=== PATIENT | female | born 1970 ===

== ENCOUNTER 2020-02-04 12:01 | Outpatient (REF) | payer OTHER, SELFPAY | END 2020-02-04 12:02 | disposition home or self-care (01) | LOC: HO.LNP 12:01 | PROVIDERS: Visit Provider Nurse Practitioner Family | DX: R05 Cough (principal); M79.10 Myalgia, unspecified site; R51.9 Headache, unspecified | CPT/HCPCS: 87635 ==

== ENCOUNTER 2020-07-30 13:16 | Outpatient (REF) | payer OTHER, SELFPAY | END 2020-07-30 13:17 | disposition home or self-care (01) | LOC: HO.LAB 13:16 | PROVIDERS: Visit Provider Internal Medicine | DX: Z20.822 Contact with and (suspected) exposure to COVID-19 (principal) | CPT/HCPCS: C9803; U0003; U0005 ==

== ENCOUNTER 2020-08-11 15:28 | Outpatient (REF) | payer OTHER, SELFPAY | END 2020-08-11 15:29 | disposition home or self-care (01) | LOC: HO.LAB 15:28 | PROVIDERS: Visit Provider Internal Medicine | DX: Z20.822 Contact with and (suspected) exposure to COVID-19 (principal) | CPT/HCPCS: C9803; U0003; U0005 ==

== ENCOUNTER 2022-02-10 14:10 | Outpatient (REF) | payer OTHER, SELFPAY ==
--- NOTE | ~2022-02-10 | XR_ITS ---
EXAMINATION: XR CHEST CLINICAL INFORMATION: Asthma COMPARISON: Previous chest x-ray from 2009 TECHNIQUE: 2 views of the chest were obtained. FINDINGS: No significant abnormality is noted involving the heart, lungs, mediastinum, bony thorax or soft tissues. XR/XR chest 2V IMPRESSION: Unremarkable examination.
[2022-02-10 14:31] LABS: MANUAL DIFF FLAG NO
[2022-02-10 15:08] LABS: Basophils Percent Auto 0.3 % (0-2); Eosinophils Absolute Auto 0.4 X10*3/uL (0.0-0.4); Eosinophils Percent Auto 6.4 % (0-4); Hematocrit 39.8 % (37.0-47.0); Hemoglobin 12.9 g/dl (12.0-16.0); Imm Gran Abs Auto 0.01 X10*3/uL (0.00-0.03); Imm Gran Pct Auto 0.2 % (0.0-0.4); Lymphocytes Absolute Auto 2.3 X10*3/uL (1.2-4.9); Lymphocytes Percent Auto 39.1 % (20-40); Mean Corpuscular HGB Conc 32.4 g/dl (31.0-35.0); Mean Corpuscular Hemoglobin 28.2 pg (27.0-33.0); Mean Corpuscular Volume 86.9 fL (80.0-98.0); Mean Platelet Volume 12.1 fL (9.4-12.3); Monocytes Absolute Auto 0.7 X10*3/uL (0.1-1.2); Monocytes Percent Auto 11.3 % (2-11); Neutrophils Absolute Auto 2.5 x10*3/uL (2.0-8.3); Neutrophils Percent Auto 42.7 % (45-73); Platelet Count 282 X10*3/uL (160-400); Red Blood Count 4.58 X10*6/uL (4.20-5.50); White Blood Count 5.8 X10*3/uL (4.8-10.8)
[2022-02-10 18:39] LABS: Erythrocyte Sedimentation Rate 14 MM/HR (0-20)
== END 2022-02-10 14:11 | disposition home or self-care (01) ==
LOC: HO.LAB 14:10
PROVIDERS: PCP Internal Medicine; Visit Provider Hospitalist
DX: Z01.82 Encounter for allergy testing (principal); J45.901 Unspecified asthma with (acute) exacerbation
CPT/HCPCS: 36415; 71046; 82785; 85025; 85652; 86003

== ENCOUNTER → 2022-05-18 13:09 | Outpatient (BNVA) | payer OTHER, SELFPAY | PROVIDERS: PCP Internal Medicine; Visit Provider Hospitalist | DX: Z13.89 Encounter for screening for other disorder (principal) ==

== ENCOUNTER 2022-12-05 14:40 | Outpatient (AMB) | payer OTHER, SELFPAY ==
--- NOTE | 2022-12-05 14:44 | A.OFFVIS_ITS ---
Intake Vital Signs 12/05/22 14:46 Height 4 ft 11 in Weight 100 lb BMI 20.2 BP 100/60 Blood Pressure Location Lt brachial Position Sitting Pulse 79 Pulse Source Pulse Oximeter Pulse Oximetry (%) 97 Oxygen Delivery Method Room Air Intake Visit Reasons: asthma Trencher Driver Required: No Allergies No Known Allergies Allergy (Verified 12/05/22 14:50) HPI HPI Comments History of Present Illness Details The patient is a 52-year-old woman with a known history will lifelong asthma. She has been on Advair for many years and had been relatively stable. He has also been on allergy medications in addition to Singulair more recently the last few months her asthma has been significantly worse. she started developing worsening cough chest tightness productive cough. the patient has required antibiotics and prednisone to try to appease her symptoms. the patient does respond to the Prednisone. Patient also has a nebulizer. Today she has been having also worsening chest tightness and wheezing. Unfortunate she is having significant wheezing on examination. the patient has been using her rescue inhaler several times a day consistent with her uncontrolled asthma. She will require additional prednisone at this time. Today will request blood work prior to her starting her medications to see if she qualifies for biologic therapy. The patient has already been maximized on her respiratory therapy as an outpatient with poor control Of her asthma symptoms. Therefore biologic therapy may be indicated at this time. 05/18/2022 the patient is here for a pulmonary follow-up visit. She continues to have significant chest tightness and shortness of breath. She also has wheezing on a regular basis. She does use her rescue inhaler on a daily basis. In addition to that she does complaint of nasal congestion and postnasal drip. This also aggravates her cough. We did review her allergy testing. She does have evidence of eosinophilia in addition to that she has significant allergies to dust mites. Her IgE was slightly elevated as well. The patient does have allergic asthma. During the last visit she did require prednisone. At this point she does not require prednisone although she is not controlled. Based on a significant allergies the patient be a good candidate for biologic therapy. This will minimize her symptoms we decrease her prednisone needs and decrease ex acerbations. Based on her elevated eosinophils she will be a good candidate for Fasenra. She also continues to have nasal congestion. She has been using nasal cortical steroid. Go ahead and send a prescription as well. She can also continue with nasal rinsing. 12/05/2022 the patient is here for pulmonary follow-up visit. The patient continues to struggle with her breathing. she does have significant chest tightness and wheezing. Moderate severity. Associated with frequent coughing episodes. Sometimes affecting her sleep. Her last chest x-ray from 2021 demonstrating no acute disease. The patient has been on Advair. Has required her rescue inhaler on a daily basis. Recently she had to go back on prednisone because of worsening asthma symptoms. She also has been using singular. We did request the patient start on biologics but she was not able to do so. Will go ahead and repeat her blood work and I do believe she will be a great candidate for biologic therapy in order to optimize her medications. [facility] Medical History (Updated 12/05/22 @ 22:15 by Davis Josue MD) Asthma Chronic allergic rhinitis Social History (Updated 02/10/22 @ 13:46 by CHITRA Santoro) Patient Tobacco Use Status: Never used Tobacco Review of Systems Const Denies fever(s) Eyes Denies change in vision ENT Reports nasal congestion, Reports nasal discharge, Reports post nasal drip, Denies throat swelling and Denies tongue swelling Card Denies chest pain and Reports dyspnea on exertion Resp Reports chest congestion, Reports cough, Denies hemoptysis, Reports dyspnea on exertion and Reports wheezing GI Reports no additional complaints Musc Reports no additional complaints Skin/Breast Denies wounds Neuro Reports no additional complaints Rayo/Lymph Denies easy bleeding and Denies easy bruising Aller/Immun Reports seasonal rhinorrhea, Denies throat swelling, Denies tongue swelling and Reports wheezing Physical Exam Vital Signs: Last Vital Signs Pulse 79 12/05/22 14:46 BP 100/60 12/05/22 14:46 Pulse Ox 97 12/05/22 14:46 Oxygen Delivery Method Room Air 12/05/22 14:46 BMI result Body Mass Index 20.2 Const General: comfortable HEENT Head: Yes normal to inspection Eyes General: appearance normal, both eyes and all related structures Neck Neck: Yes supple Chest Chest palpation & inspection: normal inspection of the chest Resp Effort & Inspection: prolonged expiratory phase Auscultation: wheezes and diminished lung sounds Cardio Rate: regular rate Rhythm: regular rhythm Heart sounds: S1 normal heart sound present and S2 normal heart sound present GI Auscultation: normal bowel sounds Skin General skin exam: no rashes or lesions noted Extrem General: Yes no clubbing, cyanosis or edema Assessment & Plan Assessment & Plan (1) Asthma: Code(s): J45.909 - Unspecified asthma, uncomplicated Qualifiers: Asthma severity: severe Asthma persistence: persistent Asthma complication type: with acute exacerbation Qualified Code(s): J45.51 - Severe persistent asthma with (acute) exacerbation (2) Cough: Code(s): R05 - Cough (3) Chronic allergic rhinitis: Code(s): J30.9 - Allergic rhinitis, unspecified Plan continue Advair continue singular fluticasone nasal spary nasal rinsing bloodwork would benefit from biologic therapy: IL5 inhibitor, Nucala F/U 2-3 months Orders: Orders Complete Blood Count Auto Diff Today J30.9 - Allergic rhinitis, unspecified, J45.909 - Unspecified asthma, uncomplicated Immunoglobulin E Today J30.9 - Allergic rhinitis, unspecified, J45.909 - Unspecified asthma, uncomplicated Immunoglobulins,IgG IgA IgM Today J30.9 - Allergic rhinitis, unspecified, J45.909 - Unspecified asthma, uncomplicated Erythrocyte Sedimentation Rate Today J30.9 - Allergic rhinitis, unspecified, J45.909 - Unspecified asthma, uncomplicated Medications: New prednisone PO daily; Take 2 tabs daily x 5 days, then 1 tablet daily x 5 days 10 days 15 tabs 0RF albuterol sulfate 2.5 mg (3 mL) inhalation Q6H 30 days PRN 180 mL 11RF shortness of breath or wheezing fluticasone propion-salmeterol 230-21 mcg/actuation (Advair HFA) 2 puffs inhalation BID 30 days 12 grams 11RF Coding Level of Care Code Est Pt Level 4 (98818) Diagnoses Asthma J45.51 Asthma severity: severe Asthma persistence: persistent Asthma complication type: with acute exacerbation Cough R05 Chronic allergic rhinitis J30.9 Time Spent (min) 18
[2022-12-05 14:46] VITALS: BP 100/60; PULSE 79; O2SAT 97; BMI 20.2
== END 2022-12-05 15:14 | disposition home or self-care (01) ==
PROVIDERS: PCP Internal Medicine; Visit Provider Hospitalist
DX: J45.51 Severe persistent asthma with (acute) exacerbation (principal); R05.9 Cough, unspecified; J30.9 Allergic rhinitis, unspecified
CPT/HCPCS: 99214

== ENCOUNTER 2022-12-05 14:40 | Outpatient (REF) | payer OTHER, SELFPAY ==
[2022-12-05 16:39] LABS: Basophils Percent Auto 0.4 % (0-2); Eosinophils Absolute Auto 0.4 X10*3/uL (0.0-0.4); Eosinophils Percent Auto 7.2 % (0-4); Hematocrit 36.8 % (37.0-47.0); Hemoglobin 12.2 g/dl (12.0-16.0); Imm Gran Abs Auto 0.02 X10*3/uL (0.00-0.03); Imm Gran Pct Auto 0.4 % (0.0-0.4); Lymphocytes Absolute Auto 2.5 X10*3/uL (1.2-4.9); Lymphocytes Percent Auto 46.4 % (20-40); MANUAL DIFF FLAG SCAN; Mean Corpuscular HGB Conc 33.2 g/dl (31.0-35.0); Mean Corpuscular Volume 87.4 fL (80.0-98.0); Mean Platelet Volume 13.3 fL (9.4-12.3); Monocytes Absolute Auto 0.5 X10*3/uL (0.1-1.2); Neutrophils Absolute Auto 1.9 x10*3/uL (2.0-8.3); Neutrophils Percent Auto 35.6 % (45-73); PLT CLUMP 1; Platelet Count 257 X10*3/uL (160-400); Red Blood Count 4.21 X10*6/uL (4.20-5.50); Red Cell Distribution Width 13.7 % (11.0-16.0); SCAN SMEAR FLAG 1; White Blood Count 5.3 X10*3/uL (4.8-10.8)
[2022-12-05 16:41] LABS: SLIDE REVIEW VERIFIED
[2022-12-05 16:49] LABS: Erythrocyte Sedimentation Rate 13 MM/HR (0-20)
[2022-12-06 15:54] LABS: IgA 90 mg/dL (47-310); IgG 1195 mg/dL (600-1640); IgM 31 mg/dL (50-300)
[2022-12-07 08:24] LABS: Immunoglobulin E 61 kU/L (<OR=114)
== END 2022-12-05 14:41 | disposition home or self-care (01) ==
LOC: HO.LAB 14:40
PROVIDERS: PCP Internal Medicine; Visit Provider Hospitalist
DX: J45.51 Severe persistent asthma with (acute) exacerbation (principal); J30.9 Allergic rhinitis, unspecified
CPT/HCPCS: 36415; 82784; 82785; 85025; 85652

== ENCOUNTER 2023-01-03 12:45 | Outpatient (REF) | payer OTHER, SELFPAY | END 2023-01-03 12:46 | disposition home or self-care (01) | LOC: HO.MDS 12:45 | PROVIDERS: Visit Provider Hospitalist | DX: J45.50 Severe persistent asthma, uncomplicated (principal) | CPT/HCPCS: 96372; J2182 ==

== ENCOUNTER 2023-02-07 12:57 | Outpatient (REF) | payer OTHER, SELFPAY | END 2023-02-07 12:58 | disposition home or self-care (01) | LOC: HO.MDS 12:57 | PROVIDERS: Visit Provider Hospitalist | DX: J45.50 Severe persistent asthma, uncomplicated (principal) | CPT/HCPCS: 96372; J2182 ==

== ENCOUNTER 2023-03-09 14:40 | Outpatient (REF) | payer OTHER, SELFPAY | END 2023-03-09 14:41 | disposition home or self-care (01) | LOC: HO.MDS 14:40 | PROVIDERS: Visit Provider Hospitalist | DX: J45.50 Severe persistent asthma, uncomplicated (principal) | CPT/HCPCS: 96372; J2182 ==

== ENCOUNTER 2023-07-02 13:08 | Outpatient (REF) | payer OTHER, SELFPAY ==
[2023-07-02 13:24] VITALS: BP 93/61; PULSE 76; RESP 16; TEMP 36.4; O2SAT 98; BMI 20.2
[2023-07-02] MEDS: Mepolizumab 100 MG/ML AUTO.INJCT SUBCUT (13:31)
== END 2023-07-02 13:09 | disposition home or self-care (01) ==
LOC: HO.MDS 13:08
PROVIDERS: Visit Provider Hospitalist
DX: J45.50 Severe persistent asthma, uncomplicated (principal)
CPT/HCPCS: 96372; J2182

== ENCOUNTER 2023-10-24 10:01 | Outpatient (AMB) | payer OTHER, SELFPAY ==
--- NOTE | 2023-10-24 10:09 | A.OFFVIS_ITS ---
Vital Signs 10/24/23 10:11 Height 4 ft 11 in Weight 101 lb 6.602 oz BMI 20.5 BP 100/70 Blood Pressure Location Lt brachial Position Sitting Pulse 70 Pulse Source Pulse Oximeter Pulse Oximetry (%) 98 Oxygen Delivery Method Room Air Intake Visit Reasons: Asthma Transit Planning Manager Required: No Allergies No Known Allergies Allergy (Verified 10/24/23 10:15) HPI Comments Details: The patient is a 53-year-old woman with a known history will lifelong asthma. She has been on Advair for many years and had been relatively stable. He has also been on allergy medications in addition to Singulair more recently the last few months her asthma has been significantly worse. she started developing worsening cough chest tightness productive cough. the patient has required antibiotics and prednisone to try to appease her symptoms. the patient does respond to the Prednisone. Patient also has a nebulizer. Today she has been having also worsening chest tightness and wheezing. Unfortunate she is having significant wheezing on examination. the patient has been using her rescue inhaler several times a day consistent with her uncontrolled asthma. She will require additional prednisone at this time. Today will request blood work prior to her starting her medications to see if she qualifies for biologic therapy. The patient has already been maximized on her respiratory therapy as an outpatient with poor control Of her asthma symptoms. Therefore biologic therapy may be indicated at this time. 05/18/2022 the patient is here for a pulmonary follow-up visit. She continues to have significant chest tightness and shortness of breath. She also has wheezing on a regular basis. She does use her rescue inhaler on a daily basis. In addition to that she does complaint of nasal congestion and postnasal drip. This also aggravates her cough. We did review her allergy testing. She does have evidence of eosinophilia in addition to that she has significant allergies to dust mites. Her IgE was slightly elevated as well. The patient does have allergic asthma. During the last visit she did require prednisone. At this point she does not require prednisone although she is not controlled. Based on a significant allergies the patient be a good candidate for biologic therapy. This will minimize her symptoms we decrease her prednisone needs and decrease exacerbations. Based on her elevated eosinophils she will be a good candidate for Fasenra. She also continues to have nasal congestion. She has been using nasal cortical steroid. Go ahead and send a prescription as well. She can also continue with nasal rinsing. 12/05/2022 the patient is here for pulmonary follow-up visit. The patient continues to struggle with her breathing. she does have significant chest tightness and wheezing. Moderate severity. Associated with frequent coughing episodes. Sometimes affecting her sleep. Her last chest x-ray from 2021 demonstrating no acute disease. The patient has been on Advair. Has required her rescue inhaler on a daily basis. Recently she had to go back on prednisone because of worsening asthma symptoms. She also has been using singular. We did request the patient start on biologics but she was not able to do so. Will go ahead and repeat her blood work and I do believe she will be a great candidate for biologic therapy in order to optimize her medications. 10/24/2023 the patient is here for a pulmonary follow-up visit. She is having worsening breathing symptoms. The patient did have to use some prednisone recently. She has been dealing with a lot of family issues and therefore has not been able to take her medications as prescribed. She should be on Nucala every 30 days. 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 She was able to be off the prednisone while being on the Nucala. however, due to different circumstances she has not been able to get Nucala monthly basis. Therefore her asthma has been flaring up. She has been using her rescue inhaler multiple times a day. I will give her additional prednisone but we also call the infusion center in order to schedule her next Nucala injection. The patient will be receiving a call. In the meantime she will continue with current respiratory therapy and provide additional prednisone indications symptoms worsen. [facility] Medical History (Updated 10/24/23 @ 10:18 by Davis Josue MD) Chronic allergic rhinitis Asthma Social History (Updated 02/10/22 @ 13:46 by CHITRA Santoro) Patient Tobacco Use Status: Never used Tobacco Review of Systems Const Denies fever(s) Eyes Denies change in vision ENT Reports nasal congestion, Reports nasal discharge, Reports post nasal drip, Denies throat swelling and Denies tongue swelling Card Denies chest pain and Reports dyspnea on exertion Resp Reports chest congestion, Reports cough, Denies hemoptysis, Reports dyspnea on exertion and Reports wheezing GI Reports no additional complaints Musc Reports no additional complaints Skin/Breast Denies wounds Neuro Reports no additional complaints Rayo/Lymph Denies easy bleeding and Denies easy bruising Aller/Immun Reports seasonal rhinorrhea, Denies throat swelling, Denies tongue swelling and Reports wheezing Physical Exam Vital Signs: Last Vital Signs Pulse 70 10/24/23 10:11 BP 100/70 10/24/23 10:11 Pulse Ox 98 10/24/23 10:11 Oxygen Delivery Method Room Air 10/24/23 10:11 BMI result Body Mass Index 20.5 Const General: comfortable HEENT Head: Yes normal to inspection Eyes General: appearance normal, both eyes and all related structures Neck Neck: Yes supple Chest Chest palpation & inspection: normal inspection of the chest Resp Effort & Inspection: prolonged expiratory phase Auscultation: wheezes and diminished lung sounds Cardio Rate: regular rate Rhythm: regular rhythm Heart sounds: S1 normal heart sound present and S2 normal heart sound present GI Auscultation: normal bowel sounds Skin General skin exam: no rashes or lesions noted Extrem General: Yes no clubbing, cyanosis or edema Assessment & Plan Assessment & Plan (1) Asthma: Code(s): J45.909 - Unspecified asthma, uncomplicated Category: Medical Qualifiers: Asthma complication type: with acute exacerbation Asthma persistence: persistent Asthma severity: severe Qualified Code(s): J45.51 - Severe persistent asthma with (acute) exacerbation (2) Cough: Code(s): R05 - Cough Category: Medical Qualifiers: Cough type: chronic Qualified Code(s): R05.3 - Chronic cough (3) Chronic allergic rhinitis: Code(s): J30.9 - Allergic rhinitis, unspecified Category: Medical Plan continue Advair continue singular MELITA as needed Prednisone if worsens fluticasone nasal spary nasal rinsing continue Nucala F/U 6-8 months Medications: Refilled prednisone PO daily; Take 2 tabs daily x 5 days, then 1 tablet daily x 5 days 15 tabs 0RF 10 days Coding Level of Care Code Est Pt Level 4 (75199) Diagnoses Severe persistent asthma with acute exacerbation J45.51 Asthma complication type: with acute exacerbation Asthma persistence: persistent Asthma severity: severe Chronic cough R05.3 Cough type: chronic Chronic allergic rhinitis J30.9 Time Spent (min) 16
[2023-10-24 10:11] VITALS: BP 100/70; PULSE 70; O2SAT 98; BMI 20.5
== END 2023-10-24 10:33 | disposition home or self-care (01) ==
PROVIDERS: PCP Internal Medicine; Visit Provider Hospitalist
DX: J45.51 Severe persistent asthma with (acute) exacerbation (principal); R05.3 Chronic cough; J30.9 Allergic rhinitis, unspecified
CPT/HCPCS: 99214

== ENCOUNTER → 2023-10-24 10:01 | Outpatient (BNVA) | payer OTHER, SELFPAY | PROVIDERS: PCP Internal Medicine; Visit Provider Hospitalist ==

== ENCOUNTER 2024-04-28 14:39 | Outpatient (REF) | payer OTHER, SELFPAY ==
--- NOTE | ~2024-04-28 | XR_ITS ---
CLINICAL HISTORY: R05.3 - Chronic cough 2 view chest x-ray Comparison: None Findings: No consolidation or effusion. Normal size heart. No acute fracture. IMPRESSION: 1. No acute findings. This document has been electronically signed by: Gianni Knowles MD on 04/29/2024 13:57:13
== END 2024-04-28 14:40 | disposition home or self-care (01) ==
LOC: HO.XRAY 14:39
PROVIDERS: PCP Internal Medicine; Visit Provider Hospitalist
DX: R05.3 Chronic cough (principal)
CPT/HCPCS: 71046

== ENCOUNTER 2024-04-28 14:39 | Outpatient (AMB) | payer OTHER, SELFPAY ==
--- NOTE | 2024-04-28 14:40 | A.OFFVIS_ITS ---
Vital Signs 04/28/24 14:41 Height 4 ft 11 in Weight 105 lb 13.15 oz BMI 21.4 BP 98/54 L Blood Pressure Location Rt brachial Position Sitting Pulse 87 Pulse Source Pulse Oximeter Pulse Oximetry (%) 98 Oxygen Delivery Method Room Air Intake Visit Reasons: asthma Allergies No Known Allergies Allergy (Verified 04/28/24 14:44) HPI Comments Details: The patient is a 54-year-old woman with a known history will lifelong asthma. She has been on Advair for many years and had been relatively stable. He has also been on allergy medications in addition to Singulair more recently the last few months her asthma has been significantly worse. she started developing worsening cough chest tightness productive cough. the patient has required antibiotics and prednisone to try to appease her symptoms. the patient does respond to the Prednisone. Patient also has a nebulizer. Today she has been having also worsening chest tightness and wheezing. Unfortunate she is having significant wheezing on examination. the patient has been using her rescue inhaler several times a day consistent with her uncontrolled asthma. She will require additional prednisone at this time. Today will request blood work prior to her starting her medications to see if she qualifies for biologic therapy. The patient has already been maximized on her respiratory therapy as an outpatient with poor control Of her asthma symptoms. Therefore biologic therapy may be indicated at this time. 05/18/2022 the patient is here for a pulmonary follow-up visit. She continues to have significant chest tightness and shortness of breath. She also has wheezing on a regular basis. She does use her rescue inhaler on a daily basis. In addition to that she does complaint of nasal congestion and postnasal drip. This also aggravates her cough. We did review her allergy testing. She does have evidence of eosinophilia in addition to that she has significant allergies to dust mites. Her IgE was slightly elevated as well. The patient does have allergic asthma. During the last visit she did require prednisone. At this point she does not require prednisone although she is not controlled. Based on a significant allergies the patient be a good candidate for biologic therapy. This will minimize her symptoms we decrease her prednisone needs and decrease exacerbations. Based on her elevated eosinophils she will be a good candidate for Fasenra. She also continues to have nasal congestion. She has been using nasal cortical steroid. Go ahead and send a prescription as well. She can also continue with nasal rinsing. 12/05/2022 the patient is here for pulmonary follow-up visit. The patient continues to struggle with her breathing. she does have significant chest tightness and wheezing. Moderate severity. Associated with frequent coughing episodes. Sometimes affecting her sleep. Her last chest x-ray from 2021 de monstrating no acute disease. The patient has been on Advair. Has required her rescue inhaler on a daily basis. Recently she had to go back on prednisone because of worsening asthma symptoms. She also has been using singular. We did request the patient start on biologics but she was not able to do so. Will go ahead and repeat her blood work and I do believe she will be a great candidate for biologic therapy in order to optimize her medications. 10/24/2023 the patient is here for a pulmonary follow-up visit. She is having worsening breathing symptoms. The patient did have to use some prednisone recently. She has been dealing with a lot of family issues and therefore has not been able to take her medications as prescribed. She should be on Nucala every 30 days. 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 She was able to be off the prednisone while being on the Nucala. however, due to different circumstances she has not been able to get Nucala monthly basis. Therefore her asthma has been flaring up. She has been using her rescue inhaler multiple times a day. I will give her additional prednisone but we also call the infusion center in order to schedule her next Nucala injection. The patient will be receiving a call. In the meantime she will continue with current respiratory therapy and provide additional prednisone indications symptoms worsen. 04/28/2024 the patient is here for a pulmonary follow-up visit. She has been having hard time now for about a month. Started developing worsening cough chest congestion chest tightness. She has some prednisone home which she initially took without any significant improvement. And she got placed on another course of prednisone and helped a little bit but then when she has her prednisone completed then her symptoms reoccurred. She did also take some antibiotics. Although no significant improvement. She needs to make sure she takes a Nucala regularly. She has missed her last dose because she was not feeling well. 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 She does have diminished breath sounds and also some chest tight ness and wheezing. She does complaint of some chest discomfort. She has not had a chest x-ray. Hopefully she has 1 to that. [facility] Medical History (Updated 10/24/23 @ 10:18 by Davis Josue MD) Chronic allergic rhinitis Asthma Social History Patient Tobacco Use Status: Never used Tobacco Review of Systems Const Denies fever(s) Eyes Denies change in vision ENT Reports nasal congestion, Reports nasal discharge, Reports post nasal drip, Denies throat swelling and Denies tongue swelling Card Denies chest pain and Reports dyspnea on exertion Resp Reports chest congestion, Reports cough, Denies hemoptysis, Reports dyspnea on exertion and Reports wheezing GI Reports no additional complaints Musc Reports no additional complaints Skin/Breast Denies wounds Neuro Reports no additional complaints Rayo/Lymph Denies easy bleeding and Denies easy bruising Aller/Immun Reports seasonal rhinorrhea, Denies throat swelling, Denies tongue swelling and Reports wheezing Physical Exam Vital Signs: Last Vital Signs Pulse 87 04/28/24 14:41 BP 98/54 L 04/28/24 14:41 Pulse Ox 98 04/28/24 14:41 Oxygen Delivery Method Room Air 04/28/24 14:41 BMI result Body Mass Index 21.4 Const General: comfortable HEENT Head: Yes normal to inspection Eyes General: appearance normal, both eyes and all related structures Neck Neck: Yes supple Chest Chest palpation & inspection: normal inspection of the chest Resp Effort & Inspection: prolonged expiratory phase Auscultation: wheezes and diminished lung sounds Cardio Rate: regular rate Rhythm: regular rhythm Heart sounds: S1 normal heart sound present and S2 normal heart sound present GI Auscultation: normal bowel sounds Skin General skin exam: no rashes or lesions noted Extrem General: Yes no clubbing, cyanosis or edema Assessment & Plan Assessment & Plan (1) Asthma: Code(s): J45.909 - Unspecified asthma, uncomplicated Category: Medical Qualifiers: Asthma complication type: with acute exacerbation Asthma persistence: persistent Asthma severity: severe Qualified Code(s): J45.51 - Severe persistent asthma with (acute) exacerbation (2) Cough: Code(s): R05 - Cough Category: Medical Qualifiers: Cough type: chronic Qualified Code(s): R05.3 - Chronic cough (3) Chronic allergic rhinitis: Code(s): J30.9 - Allergic rhinitis, unspecified Category: Medical Plan start Doxycyline prednisone taper CXR continue Advair continue singular MELITA as needed Prednisone if worsens fluticasone nasal spary nasal rinsing continue Nucala, consider switching biologics F/U 3-4 months Orders: Orders XR chest 2V Today R05.3 - Chronic cough Medications: New prednisone PO daily; Take 3 tablets x 7 days, then 2 tab day x 7 days, 1 tab daily x 7 days 42 tabs 0RF 21 days doxycycline monohydrate 100 mg PO BID 28 tabs 0RF 14 days Coding Level of Care Code Est Pt Level 4 (13141) Diagnoses Severe persistent asthma with acute exacerbation J45.51 Asthma complication type: with acute exacerbation Asthma persistence: persistent Asthma severity: severe Chronic cough R05.3 Cough type: chronic Chronic allergic rhinitis J30.9 Time Spent (min) 16
[2024-04-28 14:41] VITALS: BP 98/54; PULSE 87; O2SAT 98; BMI 21.4
== END 2024-04-28 15:06 | disposition home or self-care (01) ==
PROVIDERS: PCP Internal Medicine; Visit Provider Hospitalist
DX: J45.51 Severe persistent asthma with (acute) exacerbation (principal); R05.3 Chronic cough; J30.9 Allergic rhinitis, unspecified
CPT/HCPCS: 99214

== ENCOUNTER → 2024-04-28 15:17 | Outpatient (BNV) | payer OTHER, SELFPAY | PROVIDERS: PCP Internal Medicine; Visit Provider Radiology Diagnostic Radiology | DX: R05.3 Chronic cough (principal) | CPT/HCPCS: 71046 ==

== ENCOUNTER 2024-08-22 10:36 | Outpatient (AMB) | payer OTHER, SELFPAY ==
--- NOTE | 2024-08-22 11:17 | AM.OFFWIN_ITS ---
Intake Vital Signs 08/22/24 11:24 BMI Reason not done Patient refused/unable BP 108/62 Blood Pressure Location Lt brachial Position Sitting Pulse 71 Pulse Source Pulse Oximeter Pulse Oximetry (%) 98 Oxygen Delivery Method Room Air Intake Visit Reasons: EP RT Hip and Leg pain Intake Note: Patient here for right hip and leg pain that has been present for a couple of days. no know injuries. Patient Tobacco Use Status: Never used Tobacco [employer] Required: Yes Allergies No Known Allergies Allergy (Verified 08/22/24 11:23) Do you need a note to return to daycare/school/sports/work: No HPI EP RT Hip and Leg pain HPI Details This is a 54-year-old female patient who presents to the walk-in clinic today with right hip pain radiating down her left leg to her knee. This started yesterday without inciting incident. Denies any trauma or injury. Cannot bear weight on leg. Had similar flare about two months ago and took Naproxen with good relief. [facility] Medical History Chronic allergic rhinitis Asthma Social History Patient Tobacco Use Status: Never used Tobacco Review of Systems Const All systems reviewed & are unremarkable except as noted in HPI and below Physical Exam Vital Signs: Last Vital Signs BP 108/62 08/22/24 11:24 Const General: cooperative and in distress (pain) moderate Resp Effort & Inspection: normal respiratory effort Auscultation: clear to auscultation bilaterally Cardio Rate: regular rate Rhythm: regular rhythm Skin General skin exam: no rashes or lesions noted Neuro General: moves all extremities Gait exam (Neuro): Antalgic gait present Extrem Other: Lateral right hip extremely tender to palpation. Minimal internal/external rotation of right hip causing significant pain. Some radiation of pain down lateral leg to anterior knee on that right side. No swelling, erythema, or bruising. No edema. No joint enlargement. Psych Appearance: grossly normal Mental Status: mental status grossly normal Speech and movement: Normal speech and movement present Assessment & Plan Assessment & Plan (1) Acute pain of right hip: Code(s): M25.551 - Pain in right hip Plan: Patient sent for XR of right hip: No acute cortical disruption or malalignment. There is heterotopic calcification extending from the intertrochanteric to the posterior soft tissues of the right hip. She is in significant pain and I offered her transport to the hospital if she wishes, however she declined. She would like to try Naproxen, which I have prescribed. I will also prescribe her a muscle relaxer to take at bedtime. We reviewed indications, use, possible side effects of these medications. I encouraged her to follow up with her PCP if her symptoms persist, or she can return here as needed. Patient fit and provided with crutches today. All questions were answered and patient verbalizes understanding and agrees to plan. [employer] #: [id number] Orders: Orders XR hip RT min 2V Today M25.551 - Pain in right hip Medications: New naproxen 500 mg PO BID 7 days PRN 14 tabs 0RF pain M25.551 - Pain in right hip cyclobenzaprine 5 mg PO BEDTIME PRN 10 tabs 0RF muscle spasm M25.551 - Pain in right hip Coding Level of Care Code Est Pt Level 4 (74074) Diagnoses Acute pain of right hip M25.551
[2024-08-22 11:24] VITALS: BP 108/62; PULSE 71; O2SAT 98
== END 2024-08-22 12:49 | disposition home or self-care (01) ==
PROVIDERS: PCP Internal Medicine; Visit Provider Nurse Practitioner Family
DX: M25.551 Pain in right hip (principal)

== ENCOUNTER 2024-08-22 10:36 | Outpatient (REF) | payer OTHER, SELFPAY ==
--- NOTE | ~2024-08-22 | XR_ITS ---
EXAMINATION: XR HIP, RIGHT CLINICAL INFORMATION: M25.551 - Pain in right hip COMPARISON: None available. TECHNIQUE: Two views of the right hip. FINDINGS: No acute cortical disruption or malalignment. There is heterotopic calcification extending from the intertrochanteric to the posterior soft tissues of the right hip. XR/XR hip RT min 2V IMPRESSION: Degenerative changes versus tendinopathy versus heterotopic bone formation, posterior right hip. Electronically signed by: Anoop Solis MD 08/22/2024 12:24 PM EDT
== END 2024-08-22 10:37 | disposition home or self-care (01) ==
LOC: HO.HMGCX 10:36
PROVIDERS: PCP Internal Medicine; Visit Provider Nurse Practitioner Family
DX: M25.551 Pain in right hip (principal)
CPT/HCPCS: 73502

== ENCOUNTER → 2024-08-22 12:03 | Outpatient (BNV) | payer OTHER, SELFPAY | PROVIDERS: PCP Internal Medicine; Visit Provider Radiology Diagnostic Radiology | DX: M25.551 Pain in right hip (principal) | CPT/HCPCS: 73502 ==